=== PATIENT | male | born 1960 | race Caucasian/White ===

== ENCOUNTER 2022-05-13 19:43 | Emergency (ER) | payer MEDICARE ==
[2022-05-13] MEDS ORDERED: Bacitracin/Neomycin/Polymyxin B Oint 28.4 GM Tube TOP ONE (20:40)
[2022-05-13] MEDS ORDERED: Bacitracin/Neomycin/Polymyxin B Oint 28.4 GM Tube ONE (20:41)
== END 2022-05-13 22:00 | disposition home or self-care (01) ==
LOC: MW.ED 19:43
DX: F42.4 Excoriation (skin-picking) disorder (principal)
CPT/HCPCS: 87045; 87046; 87324; 87449; 87899; 99284; A9270